=== PATIENT | male | born 1995 | race Caucasian/White ===

== ENCOUNTER 2019-02-21 21:20 | Emergency (ER) | payer MEDICAID ==
[~2019-02-21] VITALS: Ht 170.2 cm; Wt 83.9 kg
[2019-02-21 21:56] VITALS: BP_SYST 164
--- NOTE | 2019-02-21 22:01 | NUR ---
Pt placed to ER bed 06, no seizure activity noted at this time, seizure precautions in effect. Report given to CELESTINE Coleman.
--- NOTE | 2019-02-21 22:21 | NUR ---
Pt ambulatory, no seizure activity noted. Pt placed to ER hallway 1, report given to CELESTINE Coleman.
--- NOTE | 2019-02-21 22:23 | NUR ---
Pt BIB mother C/O seizure type activity x 2 days. Pt was recently released from senior care 2 days ago after a 13 month sentence. When released pt started experiencing episodes of clenching teeth, posturing and is nonverbal. Pt is able to ambulate without assistance. Denies any other symptoms at this time. Will continue to monitor.
--- NOTE | 2019-02-21 22:40 | NUR ---
ER Dr. Becker at bedside examining patient.
[2019-02-21 23:33] LABS: BASOPHILS # (AUTO) 0.1 K/uL (0.0-0.2); EOSINOPHILS # (AUTO) 0.3 K/uL (0.0-0.4); EOSINOPHILS % (AUTO) 2.6 % (0.0-4.0); HEMATOCRIT 42.1 % (36-54); HEMOGLOBIN 14.6 g/dL (14.0-18.0); LYMPHOCYTES # (AUTO) 2.8 K/uL (1.0-5.5); LYMPHOCYTES % (AUTO) 27.8 % (20.5-51.5); MEAN CORPUSCULAR HEMOGLOBIN 31 pg (27-31); MEAN CORPUSCULAR HGB CONC 35 % (32-36); MEAN CORPUSCULAR VOLUME 90 fL (79.0-98.0); MONOCYTES # (AUTO) 1.1 K/uL (0.0-1.0); MONOCYTES % (AUTO) 10.7 % (1.7-9.3); NEUTROPHILS # (AUTO) 5.8 K/uL (1.8-7.7); NEUTROPHILS % (AUTO) 57.9 % (40.0-70.0); PLATELET COUNT (AUTO) 252 K/uL (130-430); RED BLOOD CELL COUNT(AUTO) 4.69 MIL/uL (4.2-6.2); RED CELL DISTRIBUTION WIDTH 13.8 % (9.0-15.0); WHITE BLOOD COUNT (AUTO) 10.1 K/uL (4.8-10.8)
[2019-02-21 23:46] LABS: CALCIUM 8.7 mg/dL (8.4-11.0); CREATININE 0.86 mg/dL (0.55-1.30); POTASSIUM 3.5 mmol/L (3.5-5.1)
[2019-02-21 23:52] LABS: ALBUMIN 3.4 g/dL (3.4-4.8); TOTAL BILIRUBIN 0.4 mg/dL (0.0-1.0)
--- NOTE | 2019-02-21 23:55 | NUR ---
Pt is now verbal and yelling at his mother at bedside. States "You treat me like I'm a retard, I'm fine"! Dr Becker has been notified of situation.
[2019-02-22 00:14] LABS: BILIRUBIN,URINE NEGATIVE (NEGATIVE); BLOOD, URINE NEGATIVE (NEGATIVE); CLARITY/URINE CLEAR (CLEAR); COLOR,URINE YELLOW (YELLOW); GLUCOSE,URINE NEGATIVE (NEGATIVE); KETONES,URINE NEGATIVE (NEGATIVE); LEUKOCYTE ESTERASE ,URINE NEGATIVE (NEGATIVE); NITRITE, URINE NEGATIVE (NEGATIVE); PROTEIN URINE NEGATIVE (NEGATIVE)
--- NOTE | 2019-02-22 00:15 | NUR ---
Pt is restless, anxious and growing increasingly agititated. Dr. Becker is aware and has ordered Benadryl. Will continue to monitor.
[2019-02-22 00:19] LABS: BARBITURATE, URINE NEGATIVE (NEG <=200); BENZODIAZEPINE, URINE NEGATIVE (NEG <=150); CANNABINOID, URINE NEGATIVE (NEG <=50); COCAINE, URINE NEGATIVE (NEG <=150); METHAMPHETAMINES SCREEN,URINE NEGATIVE (NEG <=500); OPIATE, URINE NEGATIVE (NEG <=100); PHENCYCLIDINE SCREEN,URINE NEGATIVE (NEG <=25); UR TRICYCLIC ANTIDEPRESSANTS NEGATIVE (NEG <=300); URINE AMPHETAMINE NEGATIVE (NEG <=500); URINE METHADONE NEGATIVE (NEG <=200); URINE OXYCODONE SCREEN NEGATIVE (NEG <=100); URINE PROPOXYPHENE SCREEN NEGATIVE (NEG <=300)
--- NOTE | 2019-02-22 00:19 | NUR ---
Dr. Becker at bedside speaking to pt.
[2019-02-22] MEDS ORDERED: DIPHENHYDRAMINE INJ 50 MG/ML VIAL IM ONE (00:30)
--- NOTE | 2019-02-22 00:45 | NUR ---
Pt is sleeping in bed, no acute distress noted at this time.
--- NOTE | 2019-02-22 01:58 | NUR ---
Patient given written and verbal discharge instructions and verbalizes understanding. ER MD discussed with patient the results and treatment provided. Patient in stable condition. ID arm band removed. Patient educated on pain management and to follow up with PMD. Pain Scale 0. Opportunity for questions provided and answered. Medication side effect fact sheet provided.
[2019-02-22 02:00] VITALS: BP_SYST 137
== END 2019-02-22 01:58 | disposition home or self-care (01) ==
LOC: SED 21:20
DX: G24.9 Dystonia, unspecified (principal)
CPT/HCPCS: 36415; 80053; 80307; 81003; 82550; 85025; 96372; 99283; J1200

== ENCOUNTER 2020-04-07 00:09 | Emergency (ER) | payer MEDICAID ==
[~2020-04-07] VITALS: Ht 175.3 cm; Wt 81.6 kg
[2020-04-07 00:11] VITALS: BP_SYST 126
[2020-04-07 00:38] VITALS: BP_SYST 126
== END 2020-04-07 00:38 | disposition home or self-care (01) ==
LOC: SED 00:09
DX: F15.90 Other stimulant use, unspecified, uncomplicated (principal)
CPT/HCPCS: 99283